=== PATIENT | male | born 1970 | race Caucasian/White ===

== ENCOUNTER → 2020-02-12 17:22 | Outpatient (CLI) | payer SELFPAY ==
--- NOTE | 2020-02-12 17:57 | XR_ITS ---
PROCEDURE: XR CHEST 2V CLINICAL HISTORY: CHRONIC BRONCHITIS, UNSPECIFIED Chronic bronchitis recent cough, heart disease COMPARISON: No exams were available for comparison FINDINGS: Normal heart size. Coronary artery stent is noted. There is blunting of the left CP angle suggesting small effusion or pleural thickening. Granuloma noted in the right lower lobe No acute bony abnormalities. IMPRESSION: Left pleural effusion or thickening otherwise negative Dictated by: John Hoyos MD 02/13/2020 06:39 Electronically signed by John Hoyos MD in [place] 02/13/2020 06:39
== END ==
PROVIDERS: PCP Family Medicine; Visit Provider Family Medicine
DX: J42 Unspecified chronic bronchitis (principal)
CPT/HCPCS: 71046